=== PATIENT | female | born 1985 | race Caucasian/White ===

== ENCOUNTER 2022-03-17 18:53 | Emergency (ER) | payer BC ==
[2022-03-17 19:53] LABS: #Basophils 0.1 thou/uL (0.0-0.2); #Eosinphils 0.1 thou/uL (0.0-0.7); #Lymphocytes 2.3 thou/uL (1.20-3.40); #Monocytes 0.6 thou/uL (0.11-0.59); %Basophils 1.2 % (0.0-1.0); %Eosinophils 0.9 % (0.0-10.0); %Monocytes 5.7 % (0.0-10.0); %Neutrophils 69.3 % (42.0-75.0); Hemoglobin 14.8 g/dL (12.0-16.0); Mean Corpuscular HGB CONC 32.9 g/dL (32.0-36.0); Mean Corpuscular Hemoglobin 31.2 pg (27.0-31.0); Mean Corpuscular Volume 94.9 fL (78.0-98.0); Mean Platelet Volume 8.1 fL (7.4-10.4); Platelet Count 378 thou/uL (130-400); RBC Distribution Width 11.7 % (11.5-14.5); Red Blood Cell (RBC) Count 4.75 mill/uL (4.20-5.40)
[2022-03-17 20:10] LABS: ALT (SGPT) 18 U/L (8-55); AST (SGOT) 23 U/L (5-34); Albumin 4.7 g/dL (3.5-5.0); Alkaline Phosphatase 74 U/L (40-110); Anion Gap 17 mmol/L (10-20); BUN (Urea Nitrogen) 6 mg/dL (7.0-18.7); Bilirubin, Total 1.1 mg/dL (0.2-1.2); Calc. Creatinine Clearance 0 mL/min (70-130); Calcium 9.6 mg/dL (7.8-10.44); Carbon Dioxide 26 mmol/L (22-29); Chloride 104 mmol/L (98-107); Globulin 2.9 g/dL (2.4-3.5); Glucose 79 mg/dL (70-105); Potassium 3.8 mmol/L (3.5-5.1); Protein, Total 7.6 g/dL (6.0-8.3); Sodium 143 mmol/L (136-145)
[2022-03-17 20:25] LABS: Bilirubin Negative (Negative); Blood, Urine Negative (Negative); Clarity Clear (Clear); Glucose, Urine (Dipstick) Negative (Negative); Ketone, Urine Negative (Negative); Leukocyte Negative (Negative); Nitrite Negative (Negative); Protein, Urine (Dipstick) Negative (Neg-Trace); Specific Gravity, Urine 1.015 (1.005-1.030); Urobilinogen 0.2 mg/dL (Less than 2)
== END 2022-03-17 20:54 | disposition home or self-care (01) ==
LOC: BURERS 18:53
DX: G40.909 Epilepsy, unspecified, not intractable, without status epilepticus (principal)
CPT/HCPCS: 36415; 70450; 80053; 81003; 85025

== ENCOUNTER 2022-04-06 17:50 | Emergency (ER) | payer BC ==
[2022-04-06] MEDS ORDERED: methylPREDNISolone Sod Succ/PF 125 MG/2 ML VIAL ONE (18:11)
[2022-04-06] MEDS ORDERED: Famotidine/PF 20 mg/2ml Vial ONE (18:11)
[2022-04-06] MEDS ORDERED: Albuterol Sulfate 2.5 mg/0.5 ml Neb ONE ×2 (18:11→18:12)
== END 2022-04-06 20:00 | disposition home or self-care (01) ==
LOC: BURERS 17:50
DX: T78.1XXA Other adverse food reactions, not elsewhere classified, initial encounter (principal); J39.2 Other diseases of pharynx
CPT/HCPCS: 96374; 96375; J2930; J7611; S0028

== ENCOUNTER 2022-04-07 13:00 | Emergency (ER) | payer BC | END 2022-04-07 14:03 | disposition home or self-care (01) | LOC: BURERS 13:00 | DX: T78.1XXA Other adverse food reactions, not elsewhere classified, initial encounter (principal); R07.9 Chest pain, unspecified | CPT/HCPCS: 93005 ==

== ENCOUNTER 2022-05-03 22:09 | Emergency (ER) | payer BC ==
[2022-05-03 23:03] LABS: #Basophils 0.1 thou/uL (0.0-0.2); #Eosinphils 0.1 thou/uL (0.0-0.7); #Lymphocytes 2.2 thou/uL (1.20-3.40); #Monocytes 0.4 thou/uL (0.11-0.59); #Neutrophils 5.2 thou/uL (1.40-6.50); %Basophils 0.6 % (0.0-1.0); %Eosinophils 0.7 % (0.0-10.0); %Lymphocytes 27.8 % (21.0-51.0); %Monocytes 5.1 % (0.0-10.0); %Neutrophils 65.8 % (42.0-75.0); Hemoglobin 14.2 g/dL (12.0-16.0); Mean Corpuscular HGB CONC 35.1 g/dL (32.0-36.0); Mean Corpuscular Hemoglobin 32.1 pg (27.0-31.0); Mean Corpuscular Volume 91.4 fL (78.0-98.0); Mean Platelet Volume 7.7 fL (7.4-10.4); Platelet Count 360 thou/uL (130-400); RBC Distribution Width 11.7 % (11.5-14.5); Red Blood Cell (RBC) Count 4.43 mill/uL (4.20-5.40); White Blood Cell (WBC) Count 7.9 thou/uL (4.8-10.8)
[2022-05-03 23:20] LABS: ALT (SGPT) 24 U/L (8-55); AST (SGOT) 18 U/L (5-34); Albumin 4.5 g/dL (3.5-5.0); Alkaline Phosphatase 72 U/L (40-110); Anion Gap 14 mmol/L (10-20); BUN (Urea Nitrogen) 7 mg/dL (7.0-18.7); Bilirubin, Total 0.8 mg/dL (0.2-1.2); Calc. Creatinine Clearance 0 mL/min (70-130); Calcium 9.3 mg/dL (7.8-10.44); Carbon Dioxide 26 mmol/L (22-29); Chloride 107 mmol/L (98-107); Globulin 2.8 g/dL (2.4-3.5); Glucose 89 mg/dL (70-105); Potassium 3.8 mmol/L (3.5-5.1); Protein, Total 7.3 g/dL (6.0-8.3); Sodium 143 mmol/L (136-145)
[2022-05-03 23:22] LABS: Bilirubin Negative (Negative); Blood, Urine Negative (Negative); Clarity Clear (Clear); Glucose, Urine (Dipstick) Negative (Negative); Ketone, Urine Negative (Negative); Leukocyte Negative (Negative); Nitrite Negative (Negative); Protein, Urine (Dipstick) Negative (Neg-Trace); Specific Gravity, Urine 1.015 (1.005-1.030); Urobilinogen 0.2 mg/dL (Less than 2)
== END 2022-05-03 23:45 | disposition home or self-care (01) ==
LOC: BURERS 22:09
DX: R00.2 Palpitations (principal)
CPT/HCPCS: 36415; 80053; 81003; 83735; 84443; 85025; 85379; 93005

== ENCOUNTER 2022-07-05 15:30 | Emergency (ER) | payer BC, OTHER | END 2022-07-05 16:52 | disposition home or self-care (01) | LOC: BURERS 15:30 | DX: S10.93XA Contusion of unspecified part of neck, initial encounter (principal); Y04.8XXA Assault by other bodily force, initial encounter | CPT/HCPCS: 70490 ==